=== PATIENT | male | born 1930 | race Caucasian/White ===

== ENCOUNTER → 2016-07-14 | Outpatient (CLI) | payer OTHER ==
[~2016-07-14] MED LIST: CIPR1TAB11 PO; CNT PO; MRLP17 PO; NUTR-1197 PO; TAMS0.4C38 PO; TPRSR50 PO; TYL325X PO; VITACAP26; VTMD1000 PO; ZINC1CAP PO
--- NOTE | 2016-07-14 13:31 | DIAGNOSTIC IMAGING REPORT ---
ULTRASOUND RIGHT VENOUS DOPP LOWER EXT UNILAT CLINICAL HISTORY: Right leg swelling COMPARISON STUDY: September 2013 FINDINGS: Real-time and color flow Doppler imaging were performed. Flow was seen within the femoral, popliteal and calf veins with no intraluminal thrombus demonstrated. The saphenous vein is patent. IMPRESSION: No evidence of right lower extremity DVT Electronically signed by: Epifanio Kimball M.D. 07/14/2016 1:29 PM Dictated Date/Time: 07/14/2016 1:29 PM
== END | disposition home or self-care (01) ==
LOC: C.ULTR 12:12
PROVIDERS: ATTEND Emergency Medicine
DX: M79.89 Other specified soft tissue disorders (principal); M79.604 Pain in right leg; I87.2 Venous insufficiency (chronic) (peripheral); I10 Essential (primary) hypertension; E11.9 Type 2 diabetes mellitus without complications; C61 Malignant neoplasm of prostate; Z85.46 Personal history of malignant neoplasm of prostate

== ENCOUNTER → 2016-08-31 | Outpatient (CLI) | payer OTHER ==
[~2016-08-31] MED LIST changes: -MRLP17 PO; -NUTR-1197 PO
[2016-08-31 13:42] LABS: BLOOD UREA NITROGEN 25 mg/dl (7-18); CALCIUM 9.2 mg/dl (8.5-10.1); CARBON DIOXIDE 33 mmol/L (21-32); CHLORIDE 102 mmol/L (98-107); CREATININE 0.88 mg/dl (0.60-1.40); GLUCOSE 130 mg/dl (70-99); SODIUM 140 mmol/L (136-145)
[2016-08-31 14:14] LABS: ESTIMATED AVERAGE GLUCOSE 128 mg/dl; HA1C FLAG Normal (Normal)
== END | disposition home or self-care (01) ==
LOC: C.LABOAKS 08:52
PROVIDERS: ATTEND Internal Medicine Critical Care Medicine
DX: E11.9 Type 2 diabetes mellitus without complications (principal); I10 Essential (primary) hypertension

== ENCOUNTER → 2016-11-28 | Outpatient (CLI) | payer OTHER ==
[2016-11-28 13:30] LABS: ESTIMATED AVERAGE GLUCOSE 131 mg/dl; HA1C FLAG Normal (Normal)
== END | disposition home or self-care (01) ==
LOC: C.LABOAKS 12:45
PROVIDERS: ATTEND Nurse Practitioner
DX: E11.9 Type 2 diabetes mellitus without complications (principal)

== ENCOUNTER → 2017-02-27 | Outpatient (CLI) | payer OTHER ==
[2017-02-27 13:15] LABS: ESTIMATED AVERAGE GLUCOSE 131 mg/dl; HA1C FLAG Normal (Normal)
== END | disposition home or self-care (01) ==
LOC: C.LABOAKS 13:11
PROVIDERS: ATTEND Nurse Practitioner
DX: E11.9 Type 2 diabetes mellitus without complications (principal)

== ENCOUNTER → 2017-05-29 | Outpatient (CLI) | payer OTHER ==
[2017-05-29 13:05] LABS: ESTIMATED AVERAGE GLUCOSE 131 mg/dl; HA1C FLAG Normal (Normal)
== END | disposition home or self-care (01) ==
LOC: C.LABOAKS 09:32
PROVIDERS: ATTEND Nurse Practitioner
DX: E11.9 Type 2 diabetes mellitus without complications (principal)

== ENCOUNTER → 2017-08-21 | Outpatient (CLI) | payer OTHER ==
[2017-08-21 13:13] LABS: HEMOGLOBIN A1C 6.1 % (4.5-5.6)
== END | disposition home or self-care (01) ==
LOC: C.LABOAKS 09:24
PROVIDERS: ATTEND Nurse Practitioner
DX: E11.9 Type 2 diabetes mellitus without complications (principal)

== ENCOUNTER → 2018-01-22 | Outpatient (CLI) | payer OTHER ==
[~2018-01-22] MED LIST changes: +ACET-1311 PO; +ASCA500 PO; +CHOL20007 PO; -CIPR1TAB11 PO; +DOXY-300 PO; -TYL325X PO; -VITACAP26; -VTMD1000 PO
[2018-01-22 13:36] LABS: HEMOGLOBIN A1C 6.2 % (4.5-5.6)
== END | disposition home or self-care (01) ==
LOC: C.LABOAKS 16:25
PROVIDERS: ATTEND Internal Medicine Critical Care Medicine
DX: E11.9 Type 2 diabetes mellitus without complications (principal)

== ENCOUNTER 2018-02-01 16:06 | Inpatient (IN) | payer OTHER ==
[~2018-02-01] VITALS: Ht 177.8 cm; Wt 66.8 kg
[~2018-02-01 16:06] MED LIST changes: -ACET-1311 PO; -ASCA500 PO; -CHOL20007 PO
[2018-02-01] MEDS ORDERED: SODIUM CHLORIDE 0.9% 1000ML 500 ML IV ONE (16:20)
[2018-02-01] MEDS ORDERED: PIPERACILLIN/TAZOBACTAM 4.5 GM/100ML D5W IV STA (16:20)
[2018-02-01] MEDS ORDERED: VANCOMYCIN 1GM ED/ASU OMNICELL IV STA (16:20)
[2018-02-01] MEDS ORDERED: CHOL20007 PO (16:32)
[2018-02-01] MEDS ORDERED: ASCA500 PO (16:32)
[2018-02-01] MEDS ORDERED: ACET-1311 PO (16:32)
[2018-02-01 17:08] LABS: BASO % 0.4 %; BASO ABS # 0.03 K/uL (0-0.2); EOS % 3.9 %; HEMOGLOBIN 12.8 g/dL (14.0-18.0); IG# 0.01 K/uL (0.00-0.02); LYMPH % 19.2 %; LYMPH ABS # 1.48 K/uL (1.2-3.4); MEAN CELL VOLUME 93.1 fL (80-100); MEAN CORPUSCULAR HEMOGLOBIN 30.5 pg (25-34); MEAN CORPUSCULAR HGB CONC 32.8 g/dl (32-36); MEAN PLATELET VOLUME 11.2 fL (7.4-10.4); MONO % 12.1 %; MONO ABS # 0.93 K/uL (0.11-0.59); NEUT % 64.3 %; NEUT ABS # 4.96 K/uL (1.4-6.5); PLATELET COUNT 205 K/uL (130-400); RED CELL DISTRIBUTION WIDTH CV 14.1 % (11.5-14.5); RED CELL DISTRIBUTION WIDTH SD 48.1 fL (36.4-46.3); WHITE BLOOD COUNT 7.71 K/uL (4.8-10.8)
--- NOTE | 2018-02-01 17:16 | DIAGNOSTIC IMAGING REPORT ---
SINGLE VIEW CHEST CLINICAL HISTORY: Sepsis. FINDINGS: An AP, portable, upright chest radiograph is compared to study dated 11/20/2017. The examination is degraded by portable technique and patient rotation. The heart is enlarged and there is atherosclerotic calcification of the thoracic aorta. The pulmonary vasculature is noncongested. Chronic interstitial thickening is similar to previous. No airspace consolidation or pleural effusion is identified. No pneumothorax is seen. The skeletal structures are osteopenic. The bony thorax is grossly intact. IMPRESSION: Cardiomegaly with no acute cardiopulmonary abnormality. Electronically signed by: Watson Martinez M.D. 02/01/2018 5:14 PM Dictated Date/Time: 02/01/2018 5:12 PM
[2018-02-01 17:18] LABS: PTT PATIENT 27.2 SECONDS (21.0-31.0)
[2018-02-01 17:28] LABS: ALBUMIN 3.2 gm/dl (3.4-5.0); CREATININE 0.86 mg/dl (0.60-1.40); POTASSIUM 4.3 mmol/L (3.5-5.1); TOTAL PROTEIN 7.5 gm/dl (6.4-8.2)
--- NOTE | 2018-02-01 17:49 | DIAGNOSTIC IMAGING REPORT ---
CT SCAN OF THE RIGHT LOWER EXTREMITY WITHOUT IV CONTRAST CLINICAL HISTORY: Right leg pain and swelling. Clinical concern for infection. COMPARISON STUDY: Radiographs of the right tibia and fibula dated 03/05/2013. TECHNIQUE: CT scan of the right lower extremity is performed from the distal femur to the foot. Images are reviewed in the axial, sagittal, and coronal planes. IV contrast was not administered for this examination. A dose lowering technique was utilized adhering to the principles of ALARA. Note that interpretation is suboptimal without plain film correlate. CT DOSE: 692.11 mGy.cm FINDINGS: The skeletal structures are osteopenic. There is no evidence of fracture. No bony erosion or periostitis is identified. The knee and ankle joints are grossly maintained. There is no ankle or knee joint effusion. Advanced atherosclerotic calcification is noted in the regional arteries. There is diffuse subcutaneous soft tissue edema identified throughout the right lower extremity with associated dermal thickening. There is subcutaneous fluid seen throughout the right leg. No organized fluid collection is identified and there is no evidence of hematoma. No subcutaneous gas is seen. The regional musculature is diffusely atrophic. IMPRESSION: 1. No acute osseous abnormality is identified in the right lower extremity. 2. Diffuse subcutaneous soft tissue edema and fluid is noted. Clinical correlation will be required. 3. There is no organized fluid collection or evidence of hematoma. Electronically signed by: Watson Martinez M.D. 02/01/2018 5:48 PM Dictated Date/Time: 02/01/2018 5:39 PM
--- NOTE | 2018-02-01 18:07 | EMERGENCY ROOM VISIT NOTE ---
History Report prepared by Fely: Amanda Lopez Under the Supervision of: Dr. Watson Mcarthur M.D. First contact with patient: 16:09 Stated Complaint: FOOT PAIN History of Present Illness The patient is a 87 year old male who presents to the Emergency Room with referral from the biometrics experimentalist office for his right foot. The patient states that his right foot has been constantly red and in its current condition for about a week and the patient told the biometrics experimentalist he put a plastic bag over his foot about two days prior to arrival. The patient denies vomiting, fevers, and chills. The patient states that he thought he would see his doctor again tonight later after he got IV antibiotics and went home. The patient denies being on any antibiotics currently. Source of History: patient, treating provider (biometrics experimentalist ) Onset: one week prior to arrival Position: leg (right) Timing: constant Associated Symptoms: No fevers, No chills, No vomiting Review of Systems See HPI for pertinent positives & negatives. A total of 10 systems reviewed and were otherwise negative. Past Medical & Surgical Medical Problems: (1) Cellulitis of lower leg Family History No pertinent family history Social History Smoking Status: Never Smoker Drug Use: none Marital Status: Housing Status: lives alone Occupation Status: retired Current/Historical Medications Scheduled Ascorbic Acid (Vitamin C), 500 MG PO DAILY Cholecalciferol (Vitamin D3), 2,000 INTER.UNIT PO DAILY Metoprolol Succinate (Metoprolol Succinate ER), 50 MG PO DAILY Multivitamins/Minerals (Cerovite Advanced Formula), 1 TAB PO DAILY Tamsulosin Hcl (Flomax), 0.4 MG PO DAILY Zinc Sulfate (Zinc Sulfate), 220 MG PO DAILY Scheduled PRN Acetaminophen (Tylenol), 650 MG PO Q4H PRN for Pain or Fever Allergies Coded Allergies: Monosodium Glutamate (Verified Allergy, Severe, ANAPHYLAXIS, 11/20/17) Codeine (Verified Allergy, Unknown, unknown, 02/01/18) Gluten (Verified Allergy, Unknown, , 11/20/17) [place] (Verified Allergy, Unknown, Unknown, 02/01/18) Physical Exam Vital Signs Date Time Temp Pulse Resp B/P (MAP) Pulse Ox O2 Delivery O2 Flow Rate FiO2 02/01/18 17:55 68 18 142/70 96 Room Air 02/01/18 17:51 96 Room Air 02/01/18 16:12 37.1 73 18 151/73 98 Room Air Physical Exam GENERAL: Patient is in no acute distress. HEENT: No acute trauma, normocephalic atraumatic, mucous membranes moist, no nasal congestion, no scleral icterus. NECK: No stridor, no adenopathy, no meningismus, trachea is midline. LUNGS: Clear to auscultation bilaterally, no wheeze, no rhonchi, breath sounds equal. HEART: Without murmurs gallops or rubs, regular rate and rhythm. ABDOMEN: Soft, nontender, bowel sounds positive, no hernias, no peritonitis. EXTREMITIES: Left lower extremity has some edema and erythema, no drainage, the skin changes seem chronic. Right lower extremity has erythema and edema, drainage with a bandage in place, foul odor noted, erythema extends from the toes and tracks up into the groin, there is warmth present. NEUROLOGIC: Oriented x 3, no acute motor or sensory deficits, no focal weakness. SKIN: No rash, no jaundice, no diaphoresis. GROIN: Right inguinal hernia which appears chronic and is not acutely tender. Medical Decision & Procedures ER Provider Diagnostic Interpretation: Radiology results as stated below per my review and radiologist interpretation: CT SCAN OF THE RIGHT LOWER EXTREMITY WITHOUT IV CONTRAST CLINICAL HISTORY: Right leg pain and swelling. Clinical concern for infection. COMPARISON STUDY: Radiographs of the right tibia and fibula dated 03/05/2013. TECHNIQUE: CT scan of the right lower extremity is performed from the distal femur to the foot. Images are reviewed in the axial, sagittal, and coronal planes. IV contrast was not administered for this examination. A dose lowering technique was utilized adhering to the principles of ALARA. Note that interpretation is suboptimal without plain film correlate. CT DOSE: 692.11 mGy.cm FINDINGS: The skeletal structures are osteopenic. There is no evidence of fracture. No bony erosion or periostitis is identified. The knee and ankle joints are grossly maintained. There is no ankle or knee joint effusion. Advanced atherosclerotic calcification is noted in the regional arteries. There is diffuse subcutaneous soft tissue edema identified throughout the right lower extremity with associated dermal thickening. There is subcutaneous fluid seen throughout the right leg. No organized fluid collection is identified and there is no evidence of hematoma. No subcutaneous gas is seen. The regional musculature is diffusely atrophic. IMPRESSION: 1. No acute osseous abnormality is identified in the right lower extremity. 2. Diffuse subcutaneous soft tissue edema and fluid is noted. Clinical correlation will be required. 3. There is no organized fluid collection or evidence of hematoma. Electronically signed by: Watson Martinez M.D. 02/01/2018 5:48 PM Dictated Date/Time: 02/01/2018 5:39 PM SINGLE VIEW CHEST CLINICAL HISTORY: Sepsis. FINDINGS: An AP, portable, upright chest radiograph is compared to study dated 11/20/2017. The examination is degraded by portable technique and patient rotation. The heart is enlarged and there is atherosclerotic calcification of the thoracic aorta. The pulmonary vasculature is noncongested. Chronic interstitial thickening is similar to previous. No airspace consolidation or pleural effusion is identified. No pneumothorax is seen. The skeletal structures are osteopenic. The bony thorax is grossly intact. IMPRESSION: Cardiomegaly with no acute cardiopulmonary abnormality. Electronically signed by: Watson Martinez M.D. 02/01/2018 5:14 PM Dictated Date/Time: 02/01/2018 5:12 PM Laboratory Results 02/01/18 16:39 Red Blood Count 4.19, Mean Corpuscular Volume 93.1, Mean Corpuscular Hemoglobin 30.5, Mean Corpuscular Hemoglobin Concent 32.8, Mean Platelet Volume 11.2, Neutrophils (%) (Auto) 64.3, Lymphocytes (%) (Auto) 19.2, Monocytes (%) (Auto) 12.1, Eosinophils (%) (Auto) 3.9, Basophils (%) (Auto) 0.4, Neutrophils # (Auto ) 4.96, Lymphocytes # (Auto) 1.48, Monocytes # (Auto) 0.93, Eosinophils # (Auto ) 0.30, Basophils # (Auto) 0.03 02/01/18 16:39 Test 02/01/18 16:39 02/01/18 16:44 02/01/18 17:45 White Blood Count 7.71 K/uL (4.8-10.8) Red Blood Count 4.19 M/uL (4.7-6.1) Hemoglobin 12.8 g/dL (14.0-18.0) Hematocrit 39.0 % (42-52) Mean Corpuscular Volume 93.1 fL (80-100) Mean Corpuscular Hemoglobin 30.5 pg (25-34) Mean Corpuscular Hemoglobin Concent 32.8 g/dl (32-36) Platelet Count 205 K/uL (130-400) Mean Platelet Volume 11.2 fL (7.4-10.4) Neutrophils (%) (Auto) 64.3 % Lymphocytes (%) (Auto) 19.2 % Monocytes (%) (Auto) 12.1 % Eosinophils (%) (Auto) 3.9 % Basophils (%) (Auto) 0.4 % Neutrophils # (Auto) 4.96 K/uL (1.4-6.5) Lymphocytes # (Auto) 1.48 K/uL (1.2-3.4) Monocytes # (Auto) 0.93 K/uL (0.11-0.59) Eosinophils # (Auto) 0.30 K/uL (0-0.5) Basophils # (Auto) 0.03 K/uL (0-0.2) RDW Standard Deviation 48.1 fL (36.4-46.3) RDW Coefficient of Variation 14.1 % (11.5-14.5) Immature Granulocyte % (Auto) 0.1 % Immature Granulocyte # (Auto) 0.01 K/uL (0.00-0.02) Prothrombin Time 10.8 SECONDS (9.0-12.0) Prothromb Time International Ratio 1.0 (0.9-1.1) Activated Partial Thromboplast Time 27.2 SECONDS (21.0-31.0) Partial Thromboplastin Ratio 1.0 Anion Gap 6.0 mmol/L (3-11) Est Creatinine Clear Calc Drug Dose 59.2 ml/min Estimated GFR () 89.7 Estimated GFR (Non- 77.4 BUN/Creatinine Ratio 25.6 (10-20) Calcium Level 9.0 mg/dl (8.5-10.1) Total Bilirubin 0.4 mg/dl (0.2-1) Aspartate Amino Transf (AST/SGOT) 20 U/L (15-37) Alanine Aminotransferase (ALT/SGPT) 21 U/L (12-78) Alkaline Phosphatase 99 U/L (45-117) Total Protein 7.5 gm/dl (6.4-8.2) Albumin 3.2 gm/dl (3.4-5.0) Globulin 4.3 gm/dl (2.5-4.0) Albumin/Globulin Ratio 0.7 (0.9-2) Bedside Lactic Acid Venous 0.99 mmol/L (0.90-1.70) Urine Color YELLOW Urine Appearance CLEAR (CLEAR) Urine pH 6.5 (4.5-7.5) Urine Specific [place] 1.017 (1.000-1.030) Urine Protein NEG (NEG) Urine Glucose (UA) NEG (NEG) Urine Ketones NEG (NEG) Urine Occult Blood NEG (NEG) Urine Nitrite NEG (NEG) Urine Bilirubin NEG (NEG) Urine Urobilinogen NEG (NEG) Urine Leukocyte Esterase NEG (NEG) Urine WBC (Auto) 1-5 /hpf (0-5) Urine RBC (Auto) 0-4 /hpf (0-4) Urine Hyaline Casts (Auto) 0 /lpf (0-5) Urine Epithelial Cells (Auto) 5-10 /lpf (0-5) Urine Bacteria (Auto) NEG (NEG) Laboratory results reviewed by me. Medications Administered Medications (Trade) Dose Ordered Sig/Ray Route Start Time Stop Time Status Last Admin Dose Admin Sodium Chloride 500 ml @ 999 mls/hr Q31M ONCE IV 02/01/18 16:20 02/01/18 16:50 DC 02/01/18 16:59 999 MLS/HR Piperacillin Sod/ Tazobactam Sod (Zosyn Iv) 4.5 gm ONE STAT IV 02/01/18 16:20 02/01/18 16:25 DC 02/01/18 17:02 4.5 GM Vancomycin HCl (Vancomycin 1gm Ed/Asu Omnicell) 1 gm ONE STAT IV 02/01/18 16:20 02/01/18 16:25 DC 02/01/18 17:50 1 GM ECG Per My Interpretation Indication: other (sepsis ) Rate (beats per minute): 69 Rhythm: normal sinus Findings: other (LVH present, no ST elevation, no PVCs) ED Course 1610: The patient was evaluated in room B8. A complete history and physical exam was performed. 1620: Ordered Vancomycin HCl 1 gm IV, Zosyn IV 4.5 gm IV, and Sodium Chloride 500 ml @ 999 mls/hr IV. 1755: I spoke with Dr. [facility] who will further evaluate the patient. Medical Decision Possible differential diagnoses include: cellulitis, osteomyelitis, necrotizing fasciitis, renal failure, liver failure, dehydration, electrolyte abnormality, and lymphangitis. There is no leukocytosis or worrisome anemia. No significant electrolyte abnormality, kidney failure or hepatitis. Lactic acid level is not elevated making sepsis less likely. EKG shows a normal sinus rhythm, no acute ischemia. Blood cultures are pending. Chest x-ray did not show pneumonia or CHF. CT of the right lower extremity does not show osteomyelitis or gas within the tissues. Edema was noted. The patient presents with an infection in the right foot. The infection extends from the toes to the right groin. There is some drainage from the right lower extremity. A hospital stay is warranted. Patient received IV vancomycin and IV Zosyn. He received IV saline. I spoke to the patient and case management. The on-call hospitalist was consulted. Medication Reconcilliation Current Medication List: was personally reviewed by me Blood Pressure Screening Patient's blood pressure: Elevated blood pressure (referred to hospitalist ) Referred to hospitalist Impression Primary Impression: Cellulitis of right leg Scribe Attestation The scribe's documentation has been prepared under my direction and personally reviewed by me in its entirety. I confirm that the note above accurately reflects all work, treatment, procedures, and medical decision making performed by me. Departure Information Dispostion Being Evaluated By Hospitalist Referrals Reynaldo Holt (PCP)
[2018-02-01] MEDS ORDERED: TPRSR/50 PO (18:12)
[2018-02-01] MEDS ORDERED: MULT-878 PO (18:12)
[2018-02-01] MEDS ORDERED: ALUMINUM/MAGNESIUM/SIMETH (MAALOX MAX) 30 ML UDC PO PRN (19:15)
[2018-02-01] MEDS ORDERED: MAGNESIUM HYDROXIDE SUSP 30 ML UDC PO PRN (19:15)
[2018-02-01] MEDS ORDERED: POLYETHYLENE (MIRALAX) 17 GM PACK PO PRN (19:15)
[2018-02-01] MEDS ORDERED: PIPERACILL/TAZOBAC CONSULT ACTIVE PRN (19:15)
[2018-02-01] MEDS ORDERED: VANCOMYCIN CONSULT ACTIVE PRN (19:15)
[2018-02-01] MEDS ORDERED: ACETAMINOPHEN 325 MG TAB PO PRN (19:15)
[2018-02-01] MEDS ORDERED: ONDANSETRON INJ 2 MG/ML 2 ML VIAL IV PRN (19:15)
--- NOTE | 2018-02-01 19:29 | History and Physical ---
History & Physical Date & Time of Service: Feb 01, 2018 at 19:14 Chief Complaint: Foot Pain Primary Care Physician: Yanet,The History of Present Illness Source: patient, hospital records, other 87 y/o M Hx HTN, LE edema, urinary retention, recurrent RLE cellulitis - admitted 12/03 for same. He was directed to the hospital by staff at assisted living due to inflammation of the RLE. He is a very poor historian and does not have any specific complaints. Cellulitis of the RLE extending from the foot to the groin is apparent on arrival to the ER. The pt is afebrile and initial labs are unremarkable. Past Medical/Surgical History 1) HTN 2) Prostate CA - post prostatectomy 3) Recurrent RLE cellulitis 4) LE edema 5) Vitamin D deficiency 6) Urinary retention and incontinence Family History No pertinent family history Father suffered from ETOH abuse and after he tumbled down multiple flights of stairs. Mother due to complications of dementia Social History Smoking Status: Never Smoker Drug Use: none Marital Status: Occupational Status: retired Allergies Coded Allergies: Monosodium Glutamate (Verified Allergy, Severe, ANAPHYLAXIS, 11/20/17) Codeine (Verified Allergy, Unknown, unknown, 02/01/18) Gluten (Verified Allergy, Unknown, , 11/20/17) [place] (Verified Allergy, Unknown, Unknown, 02/01/18) Home Medications Scheduled Ascorbic Acid (Vitamin C), 500 MG PO DAILY Cholecalciferol (Vitamin D3), 2,000 INTER.UNIT PO DAILY Metoprolol Succinate (Metoprolol Succinate ER), 50 MG PO DAILY Multivitamins/Minerals (Cerovite Advanced Formula), 1 TAB PO DAILY Tamsulosin Hcl (Flomax), 0.4 MG PO DAILY Zinc Sulfate (Zinc Sulfate), 220 MG PO DAILY Scheduled PRN Acetaminophen (Tylenol), 650 MG PO Q4H PRN for Pain or Fever Review of Systems Cannot obtain a reliable ROS - denies all symptoms including LE pain Physical Exam Vital Signs Date Time Temp Pulse Resp B/P (MAP) Pulse Ox O2 Delivery O2 Flow Rate FiO2 02/01/18 18:30 64 18 142/64 95 Room Air 02/01/18 17:55 68 18 142/70 96 Room Air 02/01/18 17:51 96 Room Air 02/01/18 16:12 37.1 73 18 151/73 98 Room Air General Appearance: WD/WN, no apparent distress, + pertinent finding ([place], elderly male in no acute distress) Head: normocephalic Eyes: normal inspection ENT: normal ENT inspection, pharynx normal Neck: supple, no JVD Respiratory/Chest: chest non-tender, lungs clear, normal breath sounds Cardiovascular: regular rate, rhythm, no edema Abdomen/GI: normal bowel sounds, non tender, soft Back: normal inspection, no CVA tenderness Extremities/Musculoskelatal: + pertinent finding (BL edema - inflammation from LEs to groin - stasis changes are apparent ) 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, no motor/sensory deficits, alert, + pertinent finding (AAO x 2 ) Skin: + pertinent finding (BL edema - inflammation from LEs to groin - stasis changes are apparent ) Diagnostics Laboratory Results Results Past 24 Hours Test 02/01/18 16:39 02/01/18 16:44 02/01/18 17:45 Range/Units White Blood Count 7.71 4.8-10.8 K/uL Red Blood Count 4.19 4.7-6.1 M/uL Hemoglobin 12.8 14.0-18.0 g/dL Hematocrit 39.0 42-52 % Mean Corpuscular Volume 93.1 80-100 fL Mean Corpuscular Hemoglobin 30.5 25-34 pg Mean Corpuscular Hemoglobin Concent 32.8 32-36 g/dl Platelet Count 205 130-400 K/uL Mean Platelet Volume 11.2 7.4-10.4 fL Neutrophils (%) (Auto) 64.3 % Lymphocytes (%) (Auto) 19.2 % Monocytes (%) (Auto) 12.1 % Eosinophils (%) (Auto) 3.9 % Basophils (%) (Auto) 0.4 % Neutrophils # (Auto) 4.96 1.4-6.5 K/uL Lymphocytes # (Auto) 1.48 1.2-3.4 K/uL Monocytes # (Auto) 0.93 0.11-0.59 K/uL Eosinophils # (Auto) 0.30 0-0.5 K/uL Basophils # (Auto) 0.03 0-0.2 K/uL RDW Standard Deviation 48.1 36.4-46.3 fL RDW Coefficient of Variation 14.1 11.5-14.5 % Immature Granulocyte % (Auto) 0.1 % Immature Granulocyte # (Auto) 0.01 0.00-0.02 K/uL Prothrombin Time 10.8 9.0-12.0 SECONDS Prothromb Time International Ratio 1.0 0.9-1.1 Activated Partial Thromboplast Time 27.2 21.0-31.0 SECONDS Partial Thromboplastin Ratio 1.0 Sodium Level 136 136-145 mmol/L Potassium Level 4.3 3.5-5.1 mmol/L Chloride Level 99 98-107 mmol/L Carbon Dioxide Level 31 21-32 mmol/L Anion Gap 6.0 3-11 mmol/L Blood Urea Nitrogen 22 7-18 mg/dl Creatinine 0.86 0.60-1.40 mg/dl Est Creatinine Clear Calc Drug Dose 59.2 ml/min Estimated GFR () 89.7 Estimated GFR (Non- 77.4 BUN/Creatinine Ratio 25.6 10-20 Random Glucose 100 70-99 mg/dl Calcium Level 9.0 8.5-10.1 mg/dl Total Bilirubin 0.4 0.2-1 mg/dl Aspartate Amino Transf (AST/SGOT) 20 15-37 U/L Alanine Aminotransferase (ALT/SGPT) 21 12-78 U/L Alkaline Phosphatase 99 45-117 U/L Total Protein 7.5 6.4-8.2 gm/dl Albumin 3.2 3.4-5.0 gm/dl Globulin 4.3 2.5-4.0 gm/dl Albumin/Globulin Ratio 0.7 0.9-2 Bedside Lactic Acid Venous 0.99 0.90-1.70 mmol/L Urine Color YELLOW Urine Appearance CLEAR CLEAR Urine pH 6.5 4.5-7.5 Urine Specific [place] 1.017 1.000-1.030 Urine Protein NEG NEG Urine Glucose (UA) NEG NEG Urine Ketones NEG NEG Urine Occult Blood NEG NEG Urine Nitrite NEG NEG Urine Bilirubin NEG NEG Urine Urobilinogen NEG NEG Urine Leukocyte Esterase NEG NEG Urine WBC (Auto) 1-5 0-5 /hpf Urine RBC (Auto) 0-4 0-4 /hpf Urine Hyaline Casts (Auto) 0 0-5 /lpf Urine Epithelial Cells (Auto) 5-10 0-5 /lpf Urine Bacteria (Auto) NEG NEG Microbiology Results 02/01/18 Blood Culture, Received Pending 02/01/18 Blood Culture, Received Pending Impression Assessment and Plan 87 y/o M Hx HTN, LE edema, urinary retention, recurrent RLE cellulitis - admitted 12/03 for same. He was directed to the hospital by staff at assisted living due to inflammation of the RLE. He is a very poor historian and does not have any specific complaints. Cellulitis of the RLE extending from the foot to the groin is apparent on arrival to the ER. The pt is afebrile and initial labs are unremarkable. 1) Cellulitis - placed on broad coverage due to extent of inflammation - he will need skin care and podiatry f/u. He would also benefit from treatment of edema. 2) HTN - cont Metoprolol 3) Urinary retention - cont Flomax Full code - Heparin prophylaxis Total time for this admit including review of labs, meds, imaging, records - discussion with pt and ER attending - 33 min Resuscitation Status VTE Prophylaxis Will order VTE Prophylaxis: Yes
[2018-02-01 20:38] VITALS: BP_SYST 17; BP_SYST 173; BP_DIAS 72; PULSE 68; TEMP 35.5; O2SAT 97
[2018-02-01] MEDS ORDERED: SODIUM CHLORIDE 0.9% 1000ML 1,000 ML IV SCH (20:45)
[2018-02-01 21:24] VITALS: BP 138/66; PULSE 73
--- NOTE | 2018-02-01 21:39 | Pharmacy Progress Note ---
Pharmacy Abx Initial Consult Date of Service Feb 01, 2018. Pharmacy Dosing Scope Date of Consult: 02/01/18 Consultation (automatic) for: Dr. Doe Pharmacy is consulted to initiate IV Vancomycin/Zosyn dosing therapy, order appropriate labs and adjust drug dose/frequency. Subjective The patient is a 87 year old male admitted on Feb 01, 2018 at 19:33. Objective Height (Feet): 5 Height (Inches): 10.00 Weight (Kilograms): 70.500 Vital Signs (Past 12Hrs) Vital Signs Past 12 Hours Date Time Temp Pulse Resp B/P (MAP) Pulse Ox O2 Delivery O2 Flow Rate FiO2 02/01/18 21:24 73 138/66 (90) 02/01/18 20:38 35.5 68 18 173/72 (105) 97 Room Air 02/01/18 19:54 66 18 154/69 93 Room Air 02/01/18 18:30 64 18 142/64 95 Room Air 02/01/18 17:55 68 18 142/70 96 Room Air 02/01/18 17:51 96 Room Air 02/01/18 16:12 37.1 73 18 151/73 98 Room Air Lab Results (24Hrs) Laboratory Tests (24 Hours) Test 02/01/18 16:39 White Blood Count 7.71 K/uL (4.8-10.8) Red Blood Count 4.19 M/uL (4.7-6.1) L Hemoglobin 12.8 g/dL (14.0-18.0) L Hematocrit 39.0 % (42-52) L Mean Corpuscular Volume 93.1 fL (80-100) Mean Corpuscular Hemoglobin 30.5 pg (25-34) Mean Corpuscular Hemoglobin Concent 32.8 g/dl (32-36) Platelet Count 205 K/uL (130-400) Mean Platelet Volume 11.2 fL (7.4-10.4) H Neutrophils (%) (Auto) 64.3 % Lymphocytes (%) (Auto) 19.2 % Monocytes (%) (Auto) 12.1 % Eosinophils (%) (Auto) 3.9 % Basophils (%) (Auto) 0.4 % Neutrophils # (Auto) 4.96 K/uL (1.4-6.5) Lymphocytes # (Auto) 1.48 K/uL (1.2-3.4) Monocytes # (Auto) 0.93 K/uL (0.11-0.59) H Eosinophils # (Auto) 0.30 K/uL (0-0.5) Basophils # (Auto) 0.03 K/uL (0-0.2) Micro Results Date/Time Source Procedure Growth Status 02/01/18 16:39 Blood Blood Culture Pending Received 02/01/18 16:39 Blood Blood Culture Pending Received Risk Factors for Resistance * Resident in a senior living or extended-care facility * Hospitalization for 48 hours or more within the past 90 days * Antimicrobial use within the last 90 days [vancomycin, rocephin, doxycycline during november admission] Assessment & Plan Assessment 87 year old male admitted with recurrent RLE cellulitis Plan Vancomycin IV * Initial dose: Vancomycin 1gm IV x 1 in ED * Maintenance dose: Vancomycin 1250mg IV q12h (based on last admission in november) * Goal trough level for cellulitis until C&S: 15-20mcg/mL * Trough level ordered for: 02/03/18 0600 dose Piperacillin/tazobactam * 4.5g bolus administered over 30 minutes, then 4.5g IV extended infusion every 8 hours for CrCl greater than 20 mL/min * Aggressive dosing selected due to critically ill status Pharmacy will continue to follow and will adjust dose/frequency as necessary. Thank you.
[2018-02-01] MEDS: HEPARIN SOD 5000 UNIT/0.5 ML CARP SQ SCH (22:00)
[2018-02-01] MEDS: PIPERACILL/TAZOBAC IV 4.5 GM in D5W 100 ML IV SCH (22:08)
[2018-02-01 22:22] VITALS: BP 138/66; PULSE 73; TEMP 35.5; O2SAT 97; Ht 177.8 cm; Wt 66.8 kg
[2018-02-01 22:59] VITALS: BP 123/62; PULSE 65; TEMP 36.4; O2SAT 97
[2018-02-02] MEDS ORDERED: PIPERACILL/TAZOBAC IV 3.375 GM in DEXTROSE 5% 100ML 100 ML IV SCH ×2
[2018-02-02] MEDS: PIPERACILL/TAZOBAC IV 4.5 GM in D5W 100 ML IV SCH ×3 (05:43→21:34)
[2018-02-02] MEDS: VANCOMYCIN IV 1,250 MG in SODIUM CHLORIDE 0.9% 250ML 250 ML IV SCH ×2 (05:43→17:44)
[2018-02-02 06:50] LABS: CREATININE 0.71 mg/dl (0.60-1.40)
[2018-02-02 07:35] VITALS: BP 125/63; PULSE 60; TEMP 36.5; O2SAT 95
[2018-02-02 08:00] VITALS: O2SAT 95
[2018-02-02] MEDS: METOPROLOL SUCC 50MG EXT REL TAB PO SCH (08:06)
[2018-02-02] MEDS: TAMSULOSIN HCL 0.4 MG CAP PO SCH (08:06)
[2018-02-02] MEDS: ZINC SULFATE 220 MG CAP PO SCH (08:07)
[2018-02-02] MEDS: CHOLECALCIFEROL 1000 INTER.UNIT TAB PO SCH (08:08)
[2018-02-02] MEDS ORDERED: CHOLECALCIFEROL 1000 INTER.UNIT TAB PO SCH (09:00)
[2018-02-02] MEDS: HEPARIN SOD 5000 UNIT/0.5 ML CARP SQ SCH ×2 (10:00→21:36)
--- NOTE | 2018-02-02 14:21 | Family Medicine Progress Note ---
Progress Note Date of Service Feb 02, 2018. Subjective Pt evaluation today including: conversation w/ patient, physical exam, chart review, lab review Pain: mild pain with movement PO Intake: tolerating Voiding: no voiding problems Reports mild 3/10 pain when moving/changing positions Cellulitis appears improved per pt (less red and painful) Otherwise asymptomatic Constitutional: No fever, No chills Respiratory: No shortness of breath Cardiovascular: No chest pain Abdomen: No pain, No nausea, No vomiting Male : No dysuria Neurologic: No problem reported Medications Current Inpatient Medications Medications (Trade) Dose Ordered Sig/Ray Route Start Time Stop Time Status Last Admin Dose Admin Miscellaneous Information (Consult) 1 ea UD PRN N/A 02/01/18 19:15 03/03/18 19:14 Vancomycin HCl 1250 mg/Sodium Chloride 275 ml @ 125 mls/hr Q12H IV 02/02/18 06:00 02/11/18 20:59 02/02/18 05:43 125 MLS/HR Vancomycin HCl (Consult) 1 ea UD PRN N/A 02/01/18 19:15 03/03/18 19:14 Metoprolol Succinate (Toprol Xl Tab) 50 mg DAILY PO 02/02/18 09:00 03/04/18 08:59 02/02/18 08:06 50 MG Tamsulosin HCl (Flomax Cap) 0.4 mg DAILY PO 02/02/18 09:00 03/04/18 08:59 02/02/18 08:06 0.4 MG Zinc Sulfate (Zinc Sulfate Cap) 220 mg DAILY PO 02/02/18 09:00 03/04/18 08:59 02/02/18 08:07 220 MG Acetaminophen (Tylenol Tab) 650 mg Q4H PRN PO 02/01/18 19:15 03/03/18 19:14 Al Hydrox/Mg Hydrox/Simethicone (Maalox Max Susp) 15 ml Q4H PRN PO 02/01/18 19:15 03/03/18 19:14 Magnesium Hydroxide (Milk Of Magnesia Susp) 30 ml Q6H PRN PO 02/01/18 19:15 03/03/18 19:14 Polyethylene (Miralax Powder Packet) 17 gm DAILY PRN PO 02/01/18 19:15 03/03/18 19:14 Ondansetron HCl (Zofran Inj) 4 mg Q6H PRN IV 02/01/18 19:15 03/03/18 19:14 Heparin Sodium (Porcine) (Heparin Sq 5000 Unit/0.5ml) 5,000 unit Q12H SQ 02/01/18 22:00 03/03/18 21:59 Cholecalciferol (Vitamin D Tab) 2,000 inter.unit DAILY PO 02/02/18 09:00 03/04/18 08:59 02/02/18 08:08 2,000 INTER.UNIT Piperacillin Sod/ Tazobactam Sod 4.5 gm/Dextrose 120 ml @ 30 mls/hr Q8H IV 02/01/18 22:00 02/11/18 21:59 02/02/18 14:01 30 MLS/HR Objective Vital Signs Date Time Temp Pulse Resp B/P (MAP) Pulse Ox O2 Delivery O2 Flow Rate FiO2 02/02/18 15:49 37.2 62 18 104/54 (71) 92 Room Air 02/02/18 08:00 95 Room Air 02/02/18 07:35 36.5 60 20 125/63 (83) 95 Room Air 02/01/18 23:59 Room Air 02/01/18 22:59 36.4 65 18 123/62 (82) 97 Room Air 02/01/18 22:22 35.5 73 18 138/66 97 Room Air 02/01/18 21:24 73 138/66 (90) 02/01/18 20:38 35.5 68 18 173/72 (105) 97 Room Air 02/01/18 19:54 66 18 154/69 93 Room Air 02/01/18 18:30 64 18 142/64 95 Room Air 02/01/18 17:55 68 18 142/70 96 Room Air 02/01/18 17:51 96 Room Air Physical Exam General Appearance: no apparent distress Eyes: normal inspection Respiratory/Chest: lungs clear, normal breath sounds, no respiratory distress Cardiovascular: regular rate, rhythm, no murmur Abdomen: normal bowel sounds, non tender, soft Extremities: non-tender, + pedal edema (2+ bilateral LE edema) Neurologic/Psychiatric: alert, oriented x 3 Skin: + pertinent finding (RLE chronic venous stasis changes with increased erythema up to knee now (improved erythema from knee to groin), nonTTP with 2+ edema; LLE chronic venous stasis changes as well) Laboratory Results 02/02/18 05:56 Test 02/01/18 17:45 02/01/18 21:02 02/02/18 05:56 Urine Color YELLOW Urine Appearance CLEAR (CLEAR) Urine pH 6.5 (4.5-7.5) Urine Specific [place] 1.017 (1.000-1.030) Urine Protein NEG (NEG) Urine Glucose (UA) NEG (NEG) Urine Ketones NEG (NEG) Urine Occult Blood NEG (NEG) Urine Nitrite NEG (NEG) Urine Bilirubin NEG (NEG) Urine Urobilinogen NEG (NEG) Urine Leukocyte Esterase NEG (NEG) Urine WBC (Auto) 1-5 /hpf (0-5) Urine RBC (Auto) 0-4 /hpf (0-4) Urine Hyaline Casts (Auto) 0 /lpf (0-5) Urine Epithelial Cells (Auto) 5-10 /lpf (0-5) Urine Bacteria (Auto) NEG (NEG) Bedside Glucose 105 mg/dl (70-99) Est Creatinine Clear Calc Drug Dose 65.7 ml/min Estimated GFR () 97.1 Estimated GFR (Non- 83.8 Assessment and Plan 87 y/oM with Hx of HTN, LE edema, and urinary retention admitted fro recurrent RLE cellulitis (last on 12/03) likely in the setting of chronic venous stasis and associated skin changes. Cellulitis - improving - RLE CT - diffuse subcutaneous soft tissue edema and fluid - BCx x 2 - pending - POC lactate - 0.99 - Afebrile with no WBC - placed on broad coverage due to extent of inflammation: Vanc and Zosyn - Wound care consult - Podiatry outpt follow up HTN - continue home Metoprolol Elevate Glucose 105 - HgbA1C of 6.2 on 01/22/18 Urinary retention - continue home Flomax Full code DVT prop: Heparin Dispo: Lives at [facility], ordered PT/OT to determine if safe to return Resident Involvement: Resident Care Provided Care Provided: Adult Hospital Medicine Assessment/Plan Resident Physician Supervision Note: I was present with Dr. Parra during the history and exam. I discussed the case with the resident and agree with the findings and plan as documented in the note. Any exceptions or clarifications are listed here: Pt seen and examined at bedside. Reports considerable improvement in RLE discomfort following IV abx. Reports no f/c, headache, SOB, abd pain. On examination - RLE flat erythematous rash of the upper thigh has faded in intensity and moved distally. RLE cellulitis with superficial lesions in the area of venous stasis changes is mildly improved per patient and less TTP, though still indurated. Minimal apparent underlying edema on pedal or contralateral examination. S1/S2 nl RRR no mCG. CTAB. Abd NT/ND BS +ve Recurrent RLE cellulitis in the setting of venous stasis changes - continue IV abx regimen and follow up cultures - narrow as available HTN - continue metoprolol, down adjust dosing if BP remains in 100s systolic into the evening
[2018-02-02 15:49] VITALS: BP 104/54; PULSE 62; TEMP 37.2; O2SAT 92
[2018-02-02 16:00] VITALS: O2SAT 92
[2018-02-02 23:15] VITALS: BP 131/65; PULSE 61; TEMP 36.7; O2SAT 95
[2018-02-03] MEDS ORDERED: VANCOMYCIN TROUGH SCH (05:30)
[2018-02-03 05:43] LABS: HEMOGLOBIN 11.6 g/dL (14.0-18.0); MEAN CELL VOLUME 93.4 fL (80-100); MEAN CORPUSCULAR HEMOGLOBIN 29.3 pg (25-34); MEAN CORPUSCULAR HGB CONC 31.4 g/dl (32-36); MEAN PLATELET VOLUME 10.9 fL (7.4-10.4); PLATELET COUNT 179 K/uL (130-400); RED CELL DISTRIBUTION WIDTH CV 14.2 % (11.5-14.5); RED CELL DISTRIBUTION WIDTH SD 48.9 fL (36.4-46.3); WHITE BLOOD COUNT 7.16 K/uL (4.8-10.8)
[2018-02-03 06:07] LABS: CALCIUM 8.1 mg/dl (8.5-10.1); CREATININE 0.8 mg/dl (0.60-1.40); POTASSIUM 3.9 mmol/L (3.5-5.1)
[2018-02-03] MEDS: VANCOMYCIN IV 1,250 MG in SODIUM CHLORIDE 0.9% 250ML 250 ML IV SCH (06:14)
[2018-02-03] MEDS: PIPERACILL/TAZOBAC IV 4.5 GM in D5W 100 ML IV SCH ×2 (06:15→13:58)
[2018-02-03 07:21] VITALS: BP 133/62; PULSE 62; TEMP 36.5; O2SAT 96
[2018-02-03] MEDS: CHOLECALCIFEROL 1000 INTER.UNIT TAB PO SCH (08:29)
[2018-02-03] MEDS: METOPROLOL SUCC 50MG EXT REL TAB PO SCH (08:30)
[2018-02-03] MEDS: TAMSULOSIN HCL 0.4 MG CAP PO SCH (08:30)
[2018-02-03] MEDS: ZINC SULFATE 220 MG CAP PO SCH (08:30)
--- NOTE | 2018-02-03 08:49 | Pharmacy Progress Note ---
Pharmacy Antibiotic Prog Note Date of Service Feb 03, 2018. Subjective The patient is currently receiving vancomycin 1250 mg iv q 12 hrs The patient is currently on day # 3 of IV therapy. Objective Height (Feet): 5 Height (Inches): 10.00 Weight (Kilograms): 66.800 Levels: Item Value Date Time Vancomycin Level Trough 13.3 mcg/ml 02/03/18 0522 Lab Results (24hrs): Test 02/03/18 05:22 White Blood Count 7.16 K/uL (4.8-10.8) Red Blood Count 3.96 M/uL (4.7-6.1) Hemoglobin 11.6 g/dL (14.0-18.0) Hematocrit 37.0 % (42-52) Mean Corpuscular Volume 93.4 fL (80-100) Mean Corpuscular Hemoglobin 29.3 pg (25-34) Mean Corpuscular Hemoglobin Concent 31.4 g/dl (32-36) RDW Standard Deviation 48.9 fL (36.4-46.3) RDW Coefficient of Variation 14.2 % (11.5-14.5) Platelet Count 179 K/uL (130-400) Mean Platelet Volume 10.9 fL (7.4-10.4) Sodium Level 139 mmol/L (136-145) Potassium Level 3.9 mmol/L (3.5-5.1) Chloride Level 103 mmol/L (98-107) Carbon Dioxide Level 29 mmol/L (21-32) Anion Gap 7.0 mmol/L (3-11) Blood Urea Nitrogen 19 mg/dl (7-18) Creatinine 0.80 mg/dl (0.60-1.40) Est Creatinine Clear Calc Drug Dose 60.3 ml/min Estimated GFR () 92.4 Estimated GFR (Non- 79.8 BUN/Creatinine Ratio 23.5 (10-20) Random Glucose 99 mg/dl (70-99) Calcium Level 8.1 mg/dl (8.5-10.1) Vancomycin Level Trough 13.3 mcg/ml (SEE COMMENT) Micro Results: Item Value Date Time Blood Culture - Preliminary Resulted 02/01/18 1639 Blood NO GROWTH TO DATE. Blood Culture - Preliminary Resulted 02/01/18 1639 Blood NO GROWTH TO DATE. Assessment & Plan Patient on vancomycin for recurrent cellulitis. Per provider notes, area seems to be improving, less red and less painful. Blood cultures x 2 are no growth. Vancomycin: * Trough level came back at ~13 mcg/ml (target for cellulitis closer to ~15 mcg /ml) ; level drawn before steady state so true trough actually probably higher. Previous pharmacokinetic data from another admission shows this dosing appropriate. No evidence of active drainage from area per notes, so ~10-15 mcg/ ml also appropriate for cellulitis * If patient continues to show improvement could consider transition to oral antibiotics * Will continue to follow, if vancomycin is to be continued could consider rechecking trough 02/05 * Scr stable, CrCl ~60 ml/min Zosyn: * 4.5 gm iv q 8 hrs - no change (appropriate for CrCl >20 ml/min; more aggressive dosing chosen b/c of recurrent infxn - could consider changing to 3.375 gm if there is continued improvement Pharmacy will continue to follow and will adjust dose/frequency as necessary. Thank you
[2018-02-03] MEDS: HEPARIN SOD 5000 UNIT/0.5 ML CARP SQ SCH ×2 (10:00→21:32)
--- NOTE | 2018-02-03 14:24 | Family Medicine Progress Note ---
Progress Note Date of Service Feb 03, 2018. Subjective Pt evaluation today including: conversation w/ patient, physical exam, chart review, lab review Pain: no leg pain this AM PO Intake: tolerating Voiding: no voiding problems This Am pt reported no pain when moving/changing position Reported looser stools Otherwise asymptomatic Constitutional: No fever Respiratory: No shortness of breath Cardiovascular: No chest pain Abdomen: + diarrhea, No pain, No nausea, No vomiting Musculoskeletal: + problem reported (R leg infection) Male : No dysuria Neurologic: No problem reported Medications Current Inpatient Medications Medications (Trade) Dose Ordered Sig/Ray Route Start Time Stop Time Status Last Admin Dose Admin Miscellaneous Information (Consult) 1 ea UD PRN N/A 02/01/18 19:15 03/03/18 19:14 Vancomycin HCl 1250 mg/Sodium Chloride 275 ml @ 125 mls/hr Q12H IV 02/02/18 06:00 02/11/18 20:59 02/03/18 06:14 125 MLS/HR Vancomycin HCl (Consult) 1 ea UD PRN N/A 02/01/18 19:15 03/03/18 19:14 Metoprolol Succinate (Toprol Xl Tab) 50 mg DAILY PO 02/02/18 09:00 03/04/18 08:59 02/03/18 08:30 50 MG Tamsulosin HCl (Flomax Cap) 0.4 mg DAILY PO 02/02/18 09:00 03/04/18 08:59 02/03/18 08:30 0.4 MG Zinc Sulfate (Zinc Sulfate Cap) 220 mg DAILY PO 02/02/18 09:00 03/04/18 08:59 02/03/18 08:30 220 MG Acetaminophen (Tylenol Tab) 650 mg Q4H PRN PO 02/01/18 19:15 03/03/18 19:14 Al Hydrox/Mg Hydrox/Simethicone (Maalox Max Susp) 15 ml Q4H PRN PO 02/01/18 19:15 03/03/18 19:14 Magnesium Hydroxide (Milk Of Magnesia Susp) 30 ml Q6H PRN PO 02/01/18 19:15 03/03/18 19:14 Polyethylene (Miralax Powder Packet) 17 gm DAILY PRN PO 02/01/18 19:15 03/03/18 19:14 Ondansetron HCl (Zofran Inj) 4 mg Q6H PRN IV 02/01/18 19:15 03/03/18 19:14 Heparin Sodium (Porcine) (Heparin Sq 5000 Unit/0.5ml) 5,000 unit Q12H SQ 02/01/18 22:00 03/03/18 21:59 Cholecalciferol (Vitamin D Tab) 2,000 inter.unit DAILY PO 02/02/18 09:00 03/04/18 08:59 02/03/18 08:29 2,000 INTER.UNIT Piperacillin Sod/ Tazobactam Sod 4.5 gm/Dextrose 120 ml @ 30 mls/hr Q8H IV 02/01/18 22:00 02/11/18 21:59 02/03/18 13:58 30 MLS/HR Objective Vital Signs Date Time Temp Pulse Resp B/P (MAP) Pulse Ox O2 Delivery O2 Flow Rate FiO2 02/03/18 15:00 36.8 70 18 119/60 (79) 97 Room Air 02/03/18 08:20 Room Air 02/03/18 07:21 36.5 62 18 133/62 (85) 96 Room Air 02/03/18 00:00 Room Air 02/02/18 23:15 36.7 61 16 131/65 (87) 95 Room Air Physical Exam General Appearance: no apparent distress Eyes: normal inspection ENT: hearing grossly normal Respiratory/Chest: lungs clear, normal breath sounds, no respiratory distress Cardiovascular: regular rate, rhythm, no murmur Abdomen: normal bowel sounds, non tender, soft Extremities: + pertinent finding (R le+ edema, with improving erythema ( now knee down and less intense) mildly TTP; LLE chronic venous stasis skin changes and 1+ edema ) Neurologic/Psychiatric: alert, oriented x 3 Laboratory Results 02/03/18 05:22 02/03/18 05:22 Test 02/03/18 05:22 Red Blood Count 3.96 M/uL (4.7-6.1) Mean Corpuscular Volume 93.4 fL (80-100) Mean Corpuscular Hemoglobin 29.3 pg (25-34) Mean Corpuscular Hemoglobin Concent 31.4 g/dl (32-36) RDW Standard Deviation 48.9 fL (36.4-46.3) RDW Coefficient of Variation 14.2 % (11.5-14.5) Mean Platelet Volume 10.9 fL (7.4-10.4) Anion Gap 7.0 mmol/L (3-11) Est Creatinine Clear Calc Drug Dose 60.3 ml/min Estimated GFR () 92.4 Estimated GFR (Non- 79.8 BUN/Creatinine Ratio 23.5 (10-20) Calcium Level 8.1 mg/dl (8.5-10.1) Vancomycin Level Trough 13.3 mcg/ml (SEE COMMENT) Assessment and Plan 87 y/oM with Hx of HTN, LE edema, and urinary retention admitted fro recurrent RLE cellulitis (last on 12/03) likely in the setting of chronic venous stasis and associated skin changes. Cellulitis - improving - RLE CT - diffuse subcutaneous soft tissue edema and fluid - BCx x 2 - NGTD - POC lactate - 0.99 - Afebrile with no WBC - placed on broad coverage due to extent of inflammation: Vanc and Zosyn x 2 days - transitioned to Doxycycline 100mg BID starting tonight (if continues to improve discharge on 8 additional days of doxy) - Wound care outpt follow up HTN - continue home Metoprolol Elevate Glucose - This AM 99 - HgbA1C of 6.2 on 01/22/18 Urinary retention - continue home Flomax Full code DVT prop: Heparin Dispo: Lives at [facility], PT recommended home health/PT Resident Involvement: Resident Care Provided Care Provided: Adult Hospital Medicine Assessment/Plan Resident Physician Supervision Note: I was present with Dr. Parra during the history and exam. I discussed the case with the resident and agree with the findings and plan as documented in the note. Any exceptions or clarifications are listed here: Pt seen and examined at bedside. Reports improvement in RLE pain and rash on IV abx. Is concerned because ED doc told him he could lose his leg. On examination - RLE flat erythematous rash of the upper thigh has receded further and is predominantly in the area of the foreleg. The foot and skin of the foreleg are still erythematous and peeling, but the induration has improved. S1/S2 nl RRR no mCG. CTAB. Abd NT/ND BS +ve Recurrent RLE cellulitis in the setting of venous stasis changes - transition to PO Doxycycline and monitor overnight as Cx are negative. HTN - continue metoprolol, adjust dosing if BP remains in 100s systolic
[2018-02-03 15:00] VITALS: BP 119/60; PULSE 70; TEMP 36.8; O2SAT 97
[2018-02-03 16:00] VITALS: O2SAT 92
[2018-02-03] MEDS: LACTOBACILLUS ACIDOPHILUS (FLORANEX) TAB PO SCH (20:04)
[2018-02-03] MEDS: DOXYCYCLINE HYCLATE 100 MG CAP PO SCH (21:31)
[2018-02-03 23:19] VITALS: BP 174/70; PULSE 68; TEMP 36.7; O2SAT 99
[2018-02-04 06:48] LABS: HEMATOCRIT 39.1 % (42-52); HEMOGLOBIN 12.7 g/dL (14.0-18.0); MEAN CELL VOLUME 92.2 fL (80-100); MEAN CORPUSCULAR HGB CONC 32.5 g/dl (32-36); MEAN PLATELET VOLUME 10.8 fL (7.4-10.4); PLATELET COUNT 186 K/uL (130-400); RED CELL DISTRIBUTION WIDTH CV 14.2 % (11.5-14.5); RED CELL DISTRIBUTION WIDTH SD 47.8 fL (36.4-46.3); WHITE BLOOD COUNT 8.24 K/uL (4.8-10.8)
[2018-02-04 07:26] LABS: CALCIUM 8.9 mg/dl (8.5-10.1); CREATININE 0.8 mg/dl (0.60-1.40); POTASSIUM 4.1 mmol/L (3.5-5.1)
[2018-02-04 07:29] VITALS: BP 152/68; PULSE 72; TEMP 36.4; O2SAT 94
[2018-02-04] MEDS: CHOLECALCIFEROL 1000 INTER.UNIT TAB PO SCH (08:18)
[2018-02-04] MEDS: LACTOBACILLUS ACIDOPHILUS (FLORANEX) TAB PO SCH ×3 (08:18→17:03)
[2018-02-04] MEDS: TAMSULOSIN HCL 0.4 MG CAP PO SCH (08:18)
[2018-02-04] MEDS: METOPROLOL SUCC 50MG EXT REL TAB PO SCH (08:18)
[2018-02-04] MEDS: ZINC SULFATE 220 MG CAP PO SCH (08:18)
[2018-02-04] MEDS: DOXYCYCLINE HYCLATE 100 MG CAP PO SCH ×2 (08:18→20:44)
[2018-02-04] MEDS: HEPARIN SOD 5000 UNIT/0.5 ML CARP SQ SCH ×2 (08:19→21:11)
[2018-02-04] MEDS ORDERED: LCTX PO ×2 (09:32→15:04)
[2018-02-04] MEDS ORDERED: DXY100 PO ×2 (09:32→15:04)
--- NOTE | 2018-02-04 09:36 | Discharge Instructions ---
Discharge Instructions Date of Service Feb 05, 2018. Admission Reason for Admission: Cellulitis Of Right Leg Discharge Discharge Diagnosis / Problem: Cellulitis (infection of skin) of right leg Discharge Goals Goal(s): Decrease discomfort, Improve function, Improve disease control Activity Recommendations Activity Limitations: resume your previous activity . Instructions / Follow-Up Instructions / Follow-Up latisha Vega were admitted to the hospital due to an infection in your right leg. You were treated with IV antibiotics, and will be discharged with 7 more days of antibiotics to take to complete your course. Please take your first dose tonight and continue taking the antibiotics twice a day until you have finished them all. We also recommend that you take the probiotics we have prescribed along with the antibiotics to help reduce your risk of diarrhea and stomach upset. We will be arranging follow up with wound care as well as physical therapy for you. We are also making an appointment for you to see your PCP to follow up this week. If you experience worsening pain, fever, chills, or increased drainage from your leg, please seek medical attention. Current Hospital Diet Patient's current hospital diet: Regular Diet Discharge Diet Recommended Diet: Regular Diet Pending Studies Studies pending at discharge: no Laboratory Results Hemoglobin A1c Test 01/22/18 07:25 Range/Units Estimated Average Glucose 131 mg/dl Hemoglobin A1c 6.2 H 4.5-5.6 % Medical Emergencies . Who to Call and When: Medical Emergencies: If at any time you feel your situation is an emergency, please call 911 immediately. . Non-Emergent Contact Non-Emergency issues call your: Primary Care Provider . . "Provider Documentation" section prepared by Fritz Tavarez. .
--- NOTE | 2018-02-04 09:39 | Discharge Summary ---
Discharge Summary Date of Service Feb 05, 2018. Discharge Summary Admission Date: Feb 01, 2018 at 19:33 Discharge Date: Feb 05, 2018 Discharge Disposition: Personal care (Reynaldo Holt) Principal Diagnosis: Right leg cellulitis Problems/Secondary Diagnoses: 1) Hypertension 2) Urinary Retention/BPH Procedures: CT SCAN OF THE RIGHT LOWER EXTREMITY WITHOUT IV CONTRAST IMPRESSION: 1. No acute osseous abnormality is identified in the right lower extremity. 2. Diffuse subcutaneous soft tissue edema and fluid is noted. Clinical correlation will be required. 3. There is no organized fluid collection or evidence of hematoma. CXR IMPRESSION: Cardiomegaly with no acute cardiopulmonary abnormality. Medication Reconciliation New Medications: Doxycycline Hyclate (Doxycycline Hyclate) 100 Mg Cap 100 MG PO BID for 7 Days, #15 CAP Lactobacillus Acidophilus (Floranex) 1 Tab Tab 4 TAB PO TIDM for 7 Days, #84 TAB Continued Medications: Acetaminophen (Tylenol) 325 Mg Tab 650 MG PO Q4H PRN for Pain or Fever, TAB MAXIMUM 3 GMS APAP IN 24 HOURS Ascorbic Acid (Vitamin C) 500 Mg Tab 500 MG PO DAILY Cholecalciferol (Vitamin D3) 2,000 Unit Tab 2000 INTER.UNIT PO DAILY, TAB Metoprolol Succinate (Metoprolol Succinate ER) 50 Mg Tabcr 50 MG PO DAILY Multivitamins/Minerals (Cerovite Advanced Formula) 1 Tab Tab 1 TAB PO DAILY Tamsulosin Hcl (Flomax) 0.4 Mg Cap 0.4 MG PO DAILY, CAP Zinc Sulfate (Zinc Sulfate) 220 Mg Cap 220 MG PO DAILY, CAP Discharge Exam Mr. Dennis reports he feels well today. He notes his pain is improving and he was able to sit up in a chair without difficulty. He states he has had some watery discharge from his right leg. He has no other complaints today. Review of Systems: Constitutional: No fever, No chills Respiratory: No shortness of breath Cardiovascular: No chest pain Abdomen: No pain, No nausea, No vomiting Musculoskeletal: + problem reported (improved right leg pain) Physical Exam: General Appearance: WD/WN, no apparent distress Respiratory/Chest: lungs clear, normal breath sounds, no respiratory distress, no accessory muscle use Cardiovascular: regular rate, rhythm, no edema Abdomen / GI: non tender, soft Extremities: + pertinent finding (right leg wrapped in bandage. mildly ttp. 5/5 power in LE. Sensation intact.) Hospital Course Mr. Dennis is a 87 year old male with a history of HTN, LE edema, and urinary retention admitted for recurrent RLE cellulitis (last on 12/03) likely in the setting of chronic venous stasis and associated skin changes. Right Leg Cellulitis - improving clinically - RLE CT - diffuse subcutaneous soft tissue edema and fluid - BCx x 2 - NGTD - Afebrile with no WBC - placed on broad coverage initially due to extent of inflammation: Vanc and Zosyn x 2 days - transitioned to Doxycycline 100mg BID & will be discharged with 7 more days of doxycycline for a total abx course of 10 days - Wound care outpatient follow up - PT recommended home health/PT Elevated Glucose - HgbA1C of 6.2 on 01/22/18 - recommend outpatient follow up Resident Physician Supervision Note: I interviewed and examined the patient. Discussed with Dr. Tavarez and agree with findings and plan as documented in the note. Any exceptions or clarifications are listed here: None Documented By: Jose Maier refused to go yesterday because he didn't have appt scheduled w PCP. today navigator scheduled interestingly in allscripts, he last saw PCP in office as kate in 2013. appt scheduled w [facility] as he requested vitals noted nad breathing unlabored no pallor or icterus. no tracking erythema on legs, skin changes and superficial ulcers the same venous stasis and ulcers, cellulitis - improving. stable for outpt wound/skin care and compression once able. stable for outpt doxy. otherwise as above Total Time Spent: Greater than 30 minutes This includes examination of the patient, discharge planning, medication reconciliation, and communication with other providers. Discharge Instructions Please refer to the electronic Patient Visit Report (Discharge Instructions) for additional information. Additional Copies To RV. Santo MD Resident Tracking Resident Involvement: Resident Care Provided Care Provided: Adult [facility] Medicine
[2018-02-04 14:51] VITALS: BP 118/65; PULSE 69; TEMP 36.7; O2SAT 95
[2018-02-04 16:00] VITALS: O2SAT 92
[2018-02-04 16:42] VITALS: BP 118/65; PULSE 69; TEMP 36.7; O2SAT 95
--- NOTE | 2018-02-04 18:20 | Family Medicine Progress Note ---
Progress Note Date of Service Feb 04, 2018. Subjective Pt evaluation today including: conversation w/ patient, physical exam, chart review, lab review, review of inpatient medication list Pain: No pain reported PO Intake: Tolerating PO intake Voiding: no voiding problems Mr. Dennis reports his pain is improving. He notes he had some watery discharge from his foot. He denies chest pain, nausea, vomiting, fever or chills. Constitutional: No fever, No chills Respiratory: No shortness of breath Cardiovascular: No chest pain Abdomen: No pain, No nausea, No vomiting All Other Systems: Reviewed and Negative Medications Current Inpatient Medications Medications (Trade) Dose Ordered Sig/Ray Route Start Time Stop Time Status Last Admin Dose Admin Metoprolol Succinate (Toprol Xl Tab) 50 mg DAILY PO 02/02/18 09:00 03/04/18 08:59 02/04/18 08:18 50 MG Tamsulosin HCl (Flomax Cap) 0.4 mg DAILY PO 02/02/18 09:00 03/04/18 08:59 02/04/18 08:18 0.4 MG Zinc Sulfate (Zinc Sulfate Cap) 220 mg DAILY PO 02/02/18 09:00 03/04/18 08:59 02/04/18 08:18 220 MG Acetaminophen (Tylenol Tab) 650 mg Q4H PRN PO 02/01/18 19:15 03/03/18 19:14 Al Hydrox/Mg Hydrox/Simethicone (Maalox Max Susp) 15 ml Q4H PRN PO 02/01/18 19:15 03/03/18 19:14 Magnesium Hydroxide (Milk Of Magnesia Susp) 30 ml Q6H PRN PO 02/01/18 19:15 03/03/18 19:14 Polyethylene (Miralax Powder Packet) 17 gm DAILY PRN PO 02/01/18 19:15 03/03/18 19:14 Ondansetron HCl (Zofran Inj) 4 mg Q6H PRN IV 02/01/18 19:15 03/03/18 19:14 Heparin Sodium (Porcine) (Heparin Sq 5000 Unit/0.5ml) 5,000 unit Q12H SQ 02/01/18 22:00 03/03/18 21:59 Cholecalciferol (Vitamin D Tab) 2,000 inter.unit DAILY PO 02/02/18 09:00 03/04/18 08:59 02/04/18 08:18 2,000 INTER.UNIT Lactobacillus Acidophilus (Floranex Tab) 4 tab TIDM PO 02/03/18 18:30 03/05/18 18:29 02/04/18 17:03 4 TAB Doxycycline Hyclate (Vibramycin Cap) 100 mg BID PO 02/03/18 21:00 02/13/18 20:59 02/04/18 08:18 100 MG Objective Vital Signs Date Time Temp Pulse Resp B/P (MAP) Pulse Ox O2 Delivery O2 Flow Rate FiO2 02/04/18 16:42 36.7 69 18 95 Room Air 02/04/18 14:51 36.7 69 18 118/65 (82) 95 Room Air 02/04/18 08:00 Room Air 02/04/18 07:29 36.4 72 18 152/68 (96) 94 Room Air 02/04/18 00:00 Room Air 02/03/18 23:19 36.7 68 20 174/70 (104) 99 Room Air Physical Exam General Appearance: WD/WN, no apparent distress Respiratory/Chest: lungs clear, normal breath sounds, no respiratory distress, no accessory muscle use Cardiovascular: regular rate, rhythm, no edema, no murmur Abdomen: non tender, soft Extremities: + pertinent finding (right leg in bandage. Not tender to palpation. Full ROM of right foot. Sensation intact) Laboratory Results Last 24 Hours Test 02/04/18 06:18 White Blood Count 8.24 K/uL Red Blood Count 4.24 M/uL Hemoglobin 12.7 g/dL Hematocrit 39.1 % Mean Corpuscular Volume 92.2 fL Mean Corpuscular Hemoglobin 30.0 pg Mean Corpuscular Hemoglobin Concent 32.5 g/dl RDW Standard Deviation 47.8 fL RDW Coefficient of Variation 14.2 % Platelet Count 186 K/uL Mean Platelet Volume 10.8 fL Sodium Level 138 mmol/L Potassium Level 4.1 mmol/L Chloride Level 100 mmol/L Carbon Dioxide Level 33 mmol/L Anion Gap 5.0 mmol/L Blood Urea Nitrogen 16 mg/dl Creatinine 0.80 mg/dl Est Creatinine Clear Calc Drug Dose 60.3 ml/min Estimated GFR () 92.4 Estimated GFR (Non- 79.8 BUN/Creatinine Ratio 20.6 Random Glucose 94 mg/dl Calcium Level 8.9 mg/dl Assessment and Plan Mr. Dennis is an 87 year old male with Hx of HTN, LE edema, and urinary retention admitted fro recurrent RLE cellulitis (last on 12/03) likely in the setting of chronic venous stasis and associated skin changes. Cellulitis - improving - RLE CT - diffuse subcutaneous soft tissue edema and fluid - BCx x 2 - NGTD - Afebrile with no WBC - placed on broad coverage due to extent of inflammation: Vanc and Zosyn x 2 days - transitioned to Doxycycline 100mg BID last night to continue for 8 more days ( total of 10 days of abx) - treat w/lactobacillus for duration of abx therapy - wound care following -> will continue to require wound care in outpatient setting HTN - continue home Metoprolol Elevate Glucose - HgbA1C of 6.2 on 01/22/18 - outpatient f/u Urinary retention - continue home Flomax Full code DVT prop: pt refusing heparin SQ injections Dispo: Lives at [facility], PT recommended home health/ PT. Patient was ready for d/c today, however he stated he will not leave until we make an appointment w/his PCP. When asked who his PCP is, he states that his PCP "has a long name he can't pronounce" and "works in the offices across the hospital." He states he has never seen her before but he listed her as his PCP. The [place] confirmed that his PCP is Dr. Tucker, who would be able to follow up with him on Sunday or of this week, however the patient states Dr. Tucker cannot see him because his insurance is [employer] and they won't allow it. Pt has seen Dr. Tucker many times in the past and has documents confirming Dr. Tucker is his PCP. Pt refuses to leave until he has an appointment booked with his "actual PCP." Pt states he was "pushed out of the hospital too early last time but this time he is smarter." Resident Physician Supervision Note: I interviewed and examined the patient. Discussed with Dr. Tavarez and agree with findings and plan as documented in the note. Any exceptions or clarifications are listed here: None Documented By: Jose Maier leg doing better worried about PCP follow up as above noted vitals noted nad breathing unlabored. RLE no tracking erythema venous stasis changes and superficial ulcers no exudate cellulitis, venous stasis, superficial ulcers -doxy, local care, safe for discharge once he's willing Resident Tracking Resident Involvement: Resident Care Provided Care Provided: Adult Hospital Medicine
[2018-02-04 23:04] VITALS: BP 140/78; PULSE 69; TEMP 36.6; O2SAT 95
[2018-02-05] MEDS: ZINC SULFATE 220 MG CAP PO SCH (08:42)
[2018-02-05] MEDS: DOXYCYCLINE HYCLATE 100 MG CAP PO SCH (08:42)
[2018-02-05] MEDS: CHOLECALCIFEROL 1000 INTER.UNIT TAB PO SCH (08:43)
[2018-02-05] MEDS: LACTOBACILLUS ACIDOPHILUS (FLORANEX) TAB PO SCH ×2 (08:43→13:04)
[2018-02-05] MEDS: METOPROLOL SUCC 50MG EXT REL TAB PO SCH (08:46)
[2018-02-05] MEDS: TAMSULOSIN HCL 0.4 MG CAP PO SCH (08:48)
[2018-02-05 08:50] VITALS: BP 134/66; PULSE 71
[2018-02-05] MEDS ORDERED: DXY100 PO (09:14)
[2018-02-05] MEDS ORDERED: LCTX PO (09:14)
[2018-02-05] MEDS: HEPARIN SOD 5000 UNIT/0.5 ML CARP SQ SCH (10:00)
== END 2018-02-05 15:10 | disposition home or self-care (01) | DRG 603 ==
LOC: EDBD 16:06 → C.EDB 16:07 → C.MED 19:33 → ENRESERV 19:41
PROVIDERS: ADMIT Internal Medicine; ATTEND Family Medicine
DX: L03.115 Cellulitis of right lower limb (principal); L97.909 Non-pressure chronic ulcer of unspecified part of unspecified lower leg with unspecified severity; N40.1 Benign prostatic hyperplasia with lower urinary tract symptoms; Z88.5 Allergy status to narcotic agent; I10 Essential (primary) hypertension; Z85.46 Personal history of malignant neoplasm of prostate; E55.9 Vitamin D deficiency, unspecified; R33.9 Retention of urine, unspecified; R32 Unspecified urinary incontinence; I87.8 Other specified disorders of veins; R73.9 Hyperglycemia, unspecified